=== PATIENT | male | born 1980 | race Caucasian/White ===

== ENCOUNTER 2022-09-15 17:58 | Emergency (ER) | payer BC ==
[~2022-09-15] VITALS: Ht 177.8 cm; Wt 77.1 kg
[2022-09-15 18:19] VITALS: BP_SYST 136
--- NOTE | 2022-09-15 18:23 | NUR ---
Patient triaged and placed in waiting room. VSS and patient appears in no acute distress at this time. Accompanied by SELF, awaiting available bed, and MD notified of need for MSE.
--- NOTE | 2022-09-15 19:17 | NUR ---
PT SEEN AND EXAMINE BY DR. VICTOR
[2022-09-15] MEDS ORDERED: CLON1TAB12 PO (19:20)
[2022-09-15] MEDS ORDERED: PARO-41 PO (19:20)
--- NOTE | 2022-09-15 19:49 | NUR ---
DC PT HOME AAOX4, NO SOB NOTED AND NAD. DC INSTRUCTION AND PRESCRIPTION WERE GIVEN TO PT AND HE VERBALIZED UNDERSTANDING
== END 2022-09-15 19:48 | disposition home or self-care (01) ==
LOC: SED 17:58
DX: Z76.0 Encounter for issue of repeat prescription (principal); J45.909 Unspecified asthma, uncomplicated; Z79.899 Other long term (current) drug therapy
CPT/HCPCS: 99281